=== PATIENT | female | born 1965 | race Asian ===

== ENCOUNTER 2025-06-07 14:32 | Emergency (ER) | payer OTHER ==
[~2025-06-07] VITALS: Ht 160 cm; Wt 74.0 kg
[2025-06-07 14:42] VITALS: O2SAT 100
[2025-06-07 15:20] LABS: CLARITY URINE CLEAR (CLEAR); COLOR URINE YELLOW (YELLOW); GLUCOSE URINE NEGATIVE (NEGATIVE); KETONES URINE NEGATIVE (NEGATIVE); LEUKOCYTE ESTERASE URINE NEGATIVE (NEGATIVE); NITRITE URINE NEGATIVE (NEGATIVE); OCCULT BLOOD URINE NEGATIVE (NEGATIVE); PH URINE 7.0 (4.5-8.0); PROTEIN URINE NEGATIVE (NEGATIVE); SPECIFIC GRAVITY URINE 1.003 (1.005-1.030); UROBILINOGEN URINE 0.2 E.U./dL (0.2-1.0)
[2025-06-07 16:00] LABS: BASOPHILS % 0.3 % (0.0-2.0); EOSINOPHILS % 0.7 % (0.0-5.0); HEMATOCRIT. 37.7 % (36.0-48.0); HEMOGLOBIN. 12.7 g/dL (12.0-16.0); LYMPHOCYTES % 32.3 % (20.0-50.0); MEAN PLATELET VOLUME 8.1 fl (7.4-10.4); MONOCYTES % 3.6 % (2.0-8.0); NEUTROPHILS % 63.1 % (40.0-76.0); PLATELET 302 x1000/uL (130-400); RED BLOOD CELL COUNT 4.11 mill/uL (4.2-5.4); RED CELL DISTRIBUTION WIDTH 12.9 % (11.6-14.6)
[2025-06-07 16:14] LABS: CREATININE 0.5 mg/dL (0.6-1.0); UREA NITROGEN BLOOD 8 mg/dL (9-23)
[2025-06-07] MEDS: SODIUM CHLORIDE 0.9% 500 ML IV ONE (16:15)
[2025-06-07 18:04] LABS: TROPONIN I HIGH SENSITIVITY < 4 ng/L (3.0-34)
[2025-06-07] MEDS: KETOROLAC 15MG/ML VIAL IV ONE (18:04)
[2025-06-07] MEDS: MECLIZINE 25MG TABLET PO ONE (18:04)
[2025-06-07] MEDS: METOCLOPRAMIDE HCL 10MG/2ML VIAL IV ONE (18:04)
[2025-06-07] MEDS ORDERED: MECL-299 MT (18:44)
[2025-06-07 19:09] VITALS: BP 132/56; PULSE 62; RESP 17; TEMP 36.8; O2SAT 100
== END 2025-06-07 19:11 | disposition home or self-care (01) ==
LOC: ER 14:32
DX: H81.399 Other peripheral vertigo, unspecified ear (principal); R51.9 Headache, unspecified; R11.0 Nausea; Z98.890 Other specified postprocedural states
CPT/HCPCS: 99285; 96374; 70450; 96361; 96375; 80048; 81003; 85025; 84484; 36415; 93005; J1885; J8597; J2765; J7040